=== PATIENT | female | born 1940 | race African-American/Black ===

== ENCOUNTER 2023-01-06 08:36 | Emergency (ER) | payer OTHER ==
[~2023-01-06] VITALS: Ht 162.6 cm; Wt 90.0 kg
[2023-01-06 09:54] LABS: EOSINOPHILS % 3.6 % (0.0-5.0); HEMOGLOBIN. 12.9 g/dL (12.0-16.0); LYMPHOCYTES % 11.4 % (20.0-50.0); MEAN CORPUSCULAR HEMOGLOBIN 30.8 pg (28.0-32.0); MEAN CORPUSCULAR VOLUME 93.4 fL (81.0-99.0); MONOCYTES % 7.9 % (2.0-8.0); NEUTROPHILS % 76.1 % (40.0-76.0); PLATELET 159 x1000/uL (130-400); RED BLOOD CELL COUNT 4.18 mill/uL (4.2-5.4); RED CELL DISTRIBUTION WIDTH 17.6 % (11.6-14.6)
[2023-01-06 10:02] LABS: CHLORIDE 102 mEq/L (98-107)
[2023-01-06 16:39] VITALS: BP 152/91; PULSE 73; RESP 18; TEMP 98
== END 2023-01-06 17:08 | disposition short-term general hospital (02) ==
LOC: ER 08:36 → CANBEDREQ 14:58 → ER 17:08
DX: R07.89 Other chest pain (principal); I10 Essential (primary) hypertension; Z99.2 Dependence on renal dialysis
CPT/HCPCS: 36415; 71045; 80053; 83880; 84484; 85025; 93005; 99285